=== PATIENT | female | born 1935 | race Caucasian/White ===

== ENCOUNTER → 2019-12-14 | Outpatient (CLI) | payer MEDICARE, OTHER ==
[~2019-12-14] MED LIST: ALBU6.7H8 INH; ALBU8.5H5 INH; ALPR0.25 PO; ALPR0.5T7 PO; AMLO-150 PO; BUDE10.22 INH; CA C1TAB39 PO; CETI10TA18 PO; CHOL10003 PO; CHOL40002 PO; CITA20TA6 PO; CYAN1TAB29 PO; DOXY25TA18 PO; ESTR42.53 VG; GUAI-103 PO; LACT1CAP35 PO; LANS30CA PO; LEVO50TA PO; LOSA25TA25 PO; MAGN100T6 PO; MULT-717 PO; NITR0.4T28 SL; NITR100C56 PO; OMEG1CAP34 PO; PHEN95TA25 PO; POTASSIUM PO; SENN-92 PO; TETR15DR65 EACHEYE; TIOT18CA INH; TRIA10.8 NS; ZINC50CA PO
== END | disposition home or self-care (01) ==
LOC: STAR 11:57
PROVIDERS: ATTEND Obstetrics & Gynecology Female Pelvic Medicine and Reconstructive Surgery
DX: Z01.818 Encounter for other preprocedural examination (principal); N81.10 Cystocele, unspecified; N81.6 Rectocele
CPT/HCPCS: 93005

== ENCOUNTER 2020-01-09 11:15 | Day surgery (SDC) | payer MEDICARE, OTHER ==
[~2020-01-09] VITALS: Ht 170.2 cm; Wt 63.9 kg
[2020-01-09] MEDS ORDERED: EPHEDRINE 50 MG/ML, 1ML IVPush PRN (11:30)
[2020-01-09] MEDS ORDERED: HYDROmorphone 2 MG/ML, 1ML IVPush PRN (11:30)
[2020-01-09] MEDS ORDERED: ONDANSETRON 2MG/ML, 2ML IV PRN (11:30)
[2020-01-09] MEDS ORDERED: hydrALAzine 20 MG/ML, 1ML IV PRN (11:30)
[2020-01-09] MEDS ORDERED: PROMETHAZINE 25 MG/ML, 1ML IV PRN (11:30)
[2020-01-09] MEDS ORDERED: MEPERIDINE/PF 25MG/ML,1ML IVPush PRN (11:30)
[2020-01-09] MEDS ORDERED: OXYcodone 5 MG/5 ML ORAL.SOL UDC PO PRN (11:30)
[2020-01-09] MEDS ORDERED: LABETALOL 5MG/ML, 20ML IV PRN (11:30)
[2020-01-09] MEDS ORDERED: FENTANYL PF 100 MCG/2ML IV PRN (11:30)
[2020-01-09 11:50] VITALS: BP 159/98
[2020-01-09] MEDS ORDERED: ACETAMINOPHEN 500 MG TABLET PO STA (11:52)
[2020-01-09] MEDS ORDERED: LACTATED RINGERS 1,000 ML IV ONE (11:52)
[2020-01-09] MEDS ORDERED: ESTROGENS CONJUGATED VAG CRM 0.625MG/1G, 30GM ONE (12:58)
[2020-01-09] MEDS ORDERED: BUPIVACAINE/PF 0.25% ONE (12:58)
[2020-01-09] MEDS ORDERED: EPINEPHRINE 1 MG/ML, 1ML ONE (12:58)
[2020-01-09] MEDS ORDERED: FLUORESCEIN SODIUM 500 MG/5 ML ONE (12:58)
[2020-01-09] MEDS ORDERED: NEOMY/POLYMYXIN B GU IRR. 1 ML ONE (12:59)
[2020-01-09] MEDS ORDERED: FENTANYL PF 100 MCG/2ML ONE (13:04)
[2020-01-09] MEDS ORDERED: DEXAMETHASONE 4 MG/ML, 1ML ONE (13:28)
[2020-01-09] MEDS ORDERED: ONDANSETRON 2MG/ML, 2ML ONE (13:28)
[2020-01-09] MEDS ORDERED: CEFOTETAN 2 GM ONE (13:28)
[2020-01-09] MEDS ORDERED: LIDOCAINE-MPF 2% ,5ML ONE (13:41)
[2020-01-09] MEDS ORDERED: KETOROLAC 30 MG/1 ML ONE (13:41)
[2020-01-09] MEDS ORDERED: SUCCINYLCHOLINE 20 MG/ML, 10ML ONE (13:41)
[2020-01-09] MEDS ORDERED: PROPOFOL 10 MG/ML, 20ML ONE (13:41)
[2020-01-09] MEDS ORDERED: EPHEDRINE 50 MG/ML, 1ML ONE (13:45)
== END 2020-01-09 18:05 | disposition home or self-care (01) ==
LOC: OUT 11:15
PROVIDERS: ATTEND Obstetrics & Gynecology Female Pelvic Medicine and Reconstructive Surgery
DX: N81.6 Rectocele (principal); N81.5 Vaginal enterocele; N95.2 Postmenopausal atrophic vaginitis; N39.3 Stress incontinence (female) (male); N81.0 Urethrocele; R15.9 Full incontinence of feces; I10 Essential (primary) hypertension; J45.909 Unspecified asthma, uncomplicated; M85.80 Other specified disorders of bone density and structure, unspecified site; Z79.890 Hormone replacement therapy; Z79.899 Other long term (current) drug therapy; Z88.0 Allergy status to penicillin; Z88.1 Allergy status to other antibiotic agents; Z90.49 Acquired absence of other specified parts of digestive tract; Z98.890 Other specified postprocedural states; Z90.710 Acquired absence of both cervix and uterus; Z90.722 Acquired absence of ovaries, bilateral; Z90.79 Acquired absence of other genital organ(s); Z80.9 Family history of malignant neoplasm, unspecified
CPT/HCPCS: 57250; 57288; C1771; J0171; J0330; J1100; J1885; J2405; J2704; J3010; J3490; J7120